=== PATIENT | female | born 1990 | race American Indian/Alaskan Native ===

== ENCOUNTER 2017-10-07 11:18 | Outpatient (CLI) | payer OTHER ==
--- NOTE | 2017-10-07 16:34 | XRay Report ---
XRAY LUMBAR SPINE WITH OBLIQUES FIVE VIEWS: 10/07/17 11:18:00 CLINICAL: Back pain. FINDINGS: Normal vertebral body height, alignment and disk spaces. Mild levoscoliosis centered at L3-4. No neural foraminal narrowing. The pedicles are intact. No fracture. Normal soft tissues. IMPRESSION: Mild scoliosis but otherwise normal.
== END 2017-10-07 11:19 | disposition home or self-care (01) ==
LOC: SPVIMAG 11:18
DX: M41.86 Other forms of scoliosis, lumbar region (principal); M99.03 Segmental and somatic dysfunction of lumbar region
CPT/HCPCS: 72100